=== PATIENT | male | born 1955 | race African-American/Black ===

== ENCOUNTER 2022-03-09 08:02 | Observation (INO) | payer MEDICARE, SELFPAY ==
[2022-03-09] VITALS (16 sets, daily range): BP systolic 134–187; BP diastolic 92–111; PULSE 80–107; RESP 11–20; TEMP 36.4–36.8; O2SAT 96–100; BMI 20.6
--- NOTE | ~2022-03-09 | XR_ITS ---
EXAMINATION: XR lumbar spine 2-3V DATE: 03/11/2022 09:27 INDICATION: Intractable low back pain. TECHNIQUE: 3 views of lumbar spine were obtained. COMPARISON: CT abdomen and pelvis 03/09/2022 FINDINGS: There is 4 degrees dextrocurvature of lumbar spine. There is 5 mm anterolisthesis of L4 on L5 and 5 mm retrolisthesis of L5 on S1. Vertebral body heights are normal. There is severely decrease d disc height at L5-S1 with endplate remodeling. There is mildly decreased disc height at L4-L5. Ther e is severe facet joint osteoarthritis in lower lumbar spine. IMPRESSION: 1. Severe lumbar spondylosis. Reviewed, dictated and finalized at location A.
--- NOTE | ~2022-03-09 | XR_ITS ---
EXAMINATION: XR chest 1V portable 03/09/2022 09:58 INDICATION: Hypertension. PROCEDURE: AP portable chest COMPARISON: No prior studies for comparison. FINDINGS: The lungs are clear. The cardiomediastinal silhouette is within normal limits. There are no pleural effusions. There is no pneumothorax suspected. IMPRESSION: 1: NO ACUTE CARDIOPULMONARY DISEASE. Reviewed, dictated and finalized at location A.
--- NOTE | ~2022-03-09 | CT_ITS ---
EXAMINATION: CT abdomen pelvis w con DATE: 03/09/2022 09:31 INDICATION: Generalized abdominal pain TECHNIQUE: Computed tomography (CT) of the abdomen and pelvis was performed with 100 cc Omnipaque 350 intravenous contrast. The dose-length product was 263.83 mGy-cm. Automated exposure control and iter ative reconstruction technique were employed. COMPARISON: None. FINDINGS: There is dependent atelectasis. There is multifocal consolidation in the left lower lobe, s uspicious for pneumonia. Heart size normal. No significant pleural or pericardial effusion. No signif icant vascular abnormality. No lymphadenopathy. There are small subcentimeter low-density lesions in the left kidney, most likely benign. Nonobstructive bowel pattern. Gallbladder is present. No free ai r or free fluid. There is diffuse bladder wall thickening. There is severe spondylosis at L5-S1. IMPRESSION: 1. Multifocal consolidation of the left lower lobe, suspicious for pneumonia. 2: Diffuse bladder wall thickening. Consider cystitis in the appropriate clinical setting. Reviewed, dictated and finalized at location A. IMPRESSION: 1. Multifocal consolidation of the left lower lobe, suspicious for pneumonia. 2: Diffuse bladder wall thickening. Consider cystitis in the appropriate clini drashana setting.
--- NOTE | 2022-03-09 08:17 | ED.GENADULT ---
HPI - General Adult General Chief complaint: Abdominal Pain Stated complaint: abd pain Time Seen by Provider: 03/09/22 08:08 Source: RN notes reviewed History of Present Illness HPI narrative: Patient presents emergency department for abdominal and back pain. Patient states he is currently on a cross-country trip from [place] to [facility] where he is from [facility] 2 days ago he developed pain throughout the abdomen that radiated into his back states the pain is aching in nature and pain is worse with sitting upright and moving of his back he denies any fevers or chills he denies any nausea vomiting or diarrhea. He states he stopped at a emergency department in [place] and states that he did not have a full work-up at that time states he not taking thing for the pain denies any other symptoms denies any numbness or tingling of the lower extremities denies any bowel or bladder incontinence Related Data Allergies Allergy/AdvReac Type Severity Reaction Status Date / Time No Known Allergies Allergy Verified 03/09/22 09:07 Review of Systems Review of Systems: Gen.: Denies fevers or chills ENT: Denies congestion Respiratory: Denies shortness of breath or cough CV: Denies chest pain or palpitations GI: See HPI denies incontinence Musculoskeletal: Reports lower back pain Neuro: Denies numbness, tingling, weakness or focal weakness Skin: Denies rash Except as documented, all other systems reviewed and negative [facility] Past Medical History Medical History (Updated 03/09/22 @ 10:46 by Bar Brown DO) Hypertension Social History Social History (Updated 03/09/22 @ 08:19 by Bar Brown DO) Smoking status: Never smoker Exam Narrative: APPEARANCE: No acute distress, nontoxic, resting in bed HEENT: Normocephalic, atraumatic, OMM RESPIRATORY: No respiratory distress, clear to auscultation bilaterally with no rhonchi wheezing or rales CARDIOVASCULAR: RRR s murmur ABDOMINAL: Soft diffusely tender to palpation no rebound or guarding MUSCULOSKELETAl: Moves all extremities. No clubbing, cyanosis or edema. Back: No midline thoracic lumbar tenderness palpation tender palpation of bilateral paravertebral muscles L3-5 pain increased with forward flexion NEURO: Awake and alert. Following commands, speech normal, no focal deficits SKIN:: Warm, dry. Normal Color PSYCHIATRIC: Normal affect/mood Course Course Emergency Course: Patient reevaluated abdomen is soft still diffusely tender to palpation the patient currently had just stopped and will driving off the freeway will admit for pain control at this time and antibiotics Discussed with Dr. Burrows presentation work-up agrees with admission Discussed with patient and family results of workup and diagnosis. Discussed need for admission. Patient and family understand and agree to current treatment plan Vital Signs Vital signs: Vital Signs Temperature 98.3 F 03/09/22 08:09 Pulse Rate 92 03/09/22 08:09 Respiratory Rate 18 03/09/22 08:09 Pulse Oximetry 97 03/09/22 08:09 Oxygen Delivery Room Air 03/09/22 08:09 Temperature 98.3 F 03/09/22 08:09 Pulse Rate 89 03/09/22 09:35 Respiratory Rate 15 03/09/22 09:35 Blood Pressure 145/111 H 03/09/22 08:46 Pulse Oximetry 99 03/09/22 09:35 Oxygen Delivery Room Air 03/09/22 08:09 Medical Decision Making Vital Signs Vital Signs: Vital Signs Temperature 98.3 F 03/09/22 08:09 Pulse Rate 92 03/09/22 08:09 Respiratory Rate 18 03/09/22 08:09 Pulse Oximetry 97 03/09/22 08:09 Oxygen Delivery Room Air 03/09/22 08:09 Temperature 98.3 F 03/09/22 08:09 Pulse Rate 89 03/09/22 09:35 Respiratory Rate 15 03/09/22 09:35 Blood Pressure 145/111 H 03/09/22 08:46 Pulse Oximetry 99 03/09/22 09:35 Oxygen Delivery Room Air 03/09/22 08:09 Lab Data Result diagrams: 03/09/22 08:40 03/09/22 08:40 Labs: Lab Results 03/09/22 03/09/22
[2022-03-09 08:48] LABS: Basophils Absolute Auto 0.1 K/mm3 (0.0-0.1); Basophils Percent Auto 0.8 % (0.2-1.2); Eosinophils Absolute Auto 0.1 K/mm3 (0-0.3); Eosinophils Percent Auto 2.3 % (0-4.4); Hemoglobin 14.9 g/dL (14.0-18.0); Immature Granulocyte Absolute 0.03 K/mm3 (0.00-0.031); Immature Granulocyte Percent A 0.5 % (0-0.5); Lymphocytes Absolute Auto 1.46 K/mm3 (0.9-3.2); Mean Corpuscular HGB Conc 33.1 g/dl (32-36); Mean Corpuscular Hemoglobin 28.8 pg (26-34); Mean Platelet Volume 10.4 fl (7.4-10.4); Monocytes Absolute Auto 0.8 K/mm3 (0.1-0.6); Neutrophils Absolute Auto 3.6 K/mm3 (1.3-6.7); Neutrophils Percent Auto 59.4 % (45.5-73.1); Platelet Count Result 215 k/mm3 (150-375); Red Blood Count 5.17 M/mm3 (4.6-6.20); Red Cell Distribution Width 14.8 % (11.5-14.5); White Blood Count 6.1 K/mm3 (4.5-10.0)
[2022-03-09 08:52] LABS: Add Urine Microscopic? YES; Appearance Urine Cloudy (Clear); Bacteria Urine Trace /hpf; Bilirubin Urine Negative (Negative); Blood Urine 2+ (Negative); Color Urine Yellow (Yellow); Glucose Urine UA Negative (Negative); Ketones Urine Negative (Negative); Leukocyte Esterase Ur 3+ LEU/UL (Negative); Nitrate Urine Negative (Negative); Protein Urine 1+ mg/dL (Negative); Specific Grav Ur 1.009 (1.001-1.035); Squamous Epithelial Cell Urine Rare /hpf (Few); Urobilinogen Urine Negative mg/dL (<2.0); WBC Urine 51-75 /hpf
[2022-03-09 08:59] LABS: Alanine Aminotransferase 38 U/L (6-50); Albumin Level 4.8 g/dL (3.5-5.1); Alkaline Phosphatase 108 U/L (38-126); Anion Gap 11 mmol/L (8-16); Aspartate Amino Transferase 58 U/L (17-59); Bilirubin,Total 0.9 mg/dL (0.2-1.3); Blood Urea Nitrogen 12 mg/dL (9-20); Calcium 9.5 mg/dL (8.4-10.2); Carbon Dioxide 25 mmol/L (22-30); Chloride 99 mmol/L (98-107); Estimated Glomerular Filt Rate > 60; Glucose 105 mg/dL (65-110); Lipase 417 U/L (23-300); Potassium 4.1 mmol/L (3.4-5.0); Sodium 135 mmol/L (137-145)
[2022-03-09] MEDS: SODIUM CHLORIDE 0.9% IV 1,000 ML 999 ML IV CONT (09:06)
[2022-03-09] MEDS: KETOROLAC 30 MG/ML VIAL (*BKC) IV PUSH (09:06)
[2022-03-09] MEDS: Please add drug allergy info to patient profile. 1 EACH XX (09:07)
[2022-03-09] MEDS: MORPHINE SULFATE (*CRX) 2 MG/ML INJ IV PUSH (10:38)
--- NOTE | 2022-03-09 11:10 | ADMGEN ---
This patient, Jg Vega, was admitted to [facility] Room 314-01. Patient/family oriented to hospital policies and general routines including ID bracelet, bed and alarms, visiting hours, pain management, procedures, bathroom and other care routines, personal items, smoking policy, room service/diet, and visiting hours. Information on how to activate the Rapid Response Team has been discussed. Patient/Family are encouraged to report perceived risks to care and to ask questions if they do not understand what they are told or what they should do.
--- NOTE | 2022-03-09 14:00 | PM.IMHP ---
H&P: HPI History of Present Illness Date/Time: 03/09/22 14:00 Chief Complaint: Back and abdominal pain. Narrative: This is a 66-year-old male with hypertension who presented to the emergency department for evaluation of back and abdominal pain. He has been living in [place] for the last 1 year and is moving back home to [place], [place]. He left [place] several days ago and approximately [address] he developed sudden onset of diffuse lower back pain radiating around into the suprapubic region. He has a difficult time describing the pain but reports that it was so severe that he had to [place] at a truck stop as he was feeling very lightheaded and dizzy in addition to the pain. EMS was summoned and he was brought to a small [facility] where he reportedly had labs done and he was discharged without intervention. He rested a few hours before he got back on the road. Unfortunately he continues to have this pain, occasionally like muscle spasms, and today he noticed a sharp and shooting pain in the left lower ribcage, worse with movement and deep inspiration. Vital signs were stable on arrival to the emergency department. Urine was cloudy with 3+ leukocyte esterase, 51 to 75 WBCs, and trace bacteria. CT of the abdomen and pelvis showed diffuse bladder wall thickening and multifocal consolidation of the left lower lobe suspicious for pneumonia. With further questioning he does endorse mild dysuria in addition to the discomfort as detailed above. He has noticed that his urine is a lot darker than usual which he attributes to the fact that he has not really had much to eat or drink while on the road, having occasional water or mouth to here or there. He denies fever, chills or night sweats, headache, sinus congestion, sore throat, cough, nausea, vomiting, and diarrhea. Review of Systems Review of Systems: Twelve systems were reviewed. No fever, chills, or sweats. He typically gets up 3 times a night to use the restroom. No lower extremity weakness, bowel or bladder incontinence, urinary retention, saddle anesthesia. No sick contacts was knowledge. Except as documented, all other systems were reviewed and are negative. [facility] Past Medical History Medical History (Updated 03/09/22 @ 18:07 by Amanda Mccollum PA-C) Hypertension Surgical History Surgical History (Updated 03/09/22 @ 18:03 by Amanda Mccollum PA-C) History of lumbar surgery (2009) Family History Family History (Updated 03/09/22 @ 18:03 by Amanda Mccollum PA-C) Other Alzheimer's dementia Hypertension Social History Social History (Updated 03/09/22 @ 23:46 by Amanda Mccollum PA-C) Social History: Surrogate medical decision maker: Don Briseno, significant other. Code status: Full code. Smoking packs per day: 0.25 Smoking cigarettes per day: 5.0 Smoking status: Current every day smoker Tobacco type: cigarettes Additional smoking assessment comments: Smokes 1 pack of cigarettes a week. Alcohol intake: current Drinks per week: 1 Substance use: current Substance use type: marijuana Other substance usage details: Occasionally in moderation. Additional living arrangements comments: Moving back to [place], [place] after living in [place] for the last 1 year. Additional occupation/education comments: Retired, previously worked for an [employer]. Spiritual care concerns: No Meds Home Medications and Allergies Home Medications Medication Instructions Recorded Confirmed Type amlodipine 10 mg tablet 10 mg PO DAILY 03/09/22 03/09/22 History gabapentin 300 mg capsule 300 mg PO BID 03/09/22 03/09/22 History losartan 100 mg tablet 100 mg PO HS 03/09/22 03/09/22 History meclizine 25 mg tablet 25 mg PO PRN PRN Dizziness 03/09/22 03/09/22 History Allergies Allergy/AdvReac Type Severity Reaction Status Date / Time No Known Allergies Allergy Verified 03/09/22 13:54 Vital Signs Vital Signs - 24 hr
[2022-03-09] MEDS: GABAPENTIN 300 MG CAPSULE PO (17:17)
[2022-03-09] MEDS: ACETAMINOPHEN 325 MG TABLET 650 MG PO (18:26)
[2022-03-09] MEDS: CYCLOBENZAPRINE HCL 10 MG TABLET PO (18:26)
[2022-03-09] MEDS: LOSARTAN POTASSIUM 100 MG TABLET PO (20:02)
--- NOTE | 2022-03-10 02:13 | PC.NURSE ---
This RN has personally reviewed RN-License Pending Gaudencio Piña's charting and will be reviewing until the end of this shift.
[2022-03-10] MEDS: CYCLOBENZAPRINE HCL 10 MG TABLET PO ×2 (03:30→15:27)
[2022-03-10] MEDS: ACETAMINOPHEN 325 MG TABLET 650 MG PO (03:30)
[2022-03-10 06:00] VITALS: BP 154/91; PULSE 68; RESP 14; TEMP 36.2; O2SAT 98
[2022-03-10 07:24] LABS: Basophils Percent Auto 0.9 % (0.2-1.2); Eosinophils Absolute Auto 0.3 K/mm3 (0-0.3); Eosinophils Percent Auto 5.5 % (0-4.4); Hematocrit 40.9 % (42.0-52.0); Hemoglobin 13.4 g/dL (14.0-18.0); Immature Granulocyte Absolute 0.01 K/mm3 (0.00-0.031); Immature Granulocyte Percent A 0.2 % (0-0.5); Lymphocytes Percent Auto 37.4 % (18.3-44.2); Mean Corpuscular HGB Conc 32.8 g/dl (32-36); Mean Corpuscular Hemoglobin 28.8 pg (26-34); Mean Corpuscular Volume 87.8 fl (80-100); Mean Platelet Volume 10.7 fl (7.4-10.4); Monocytes Absolute Auto 0.7 K/mm3 (0.1-0.6); Neutrophils Absolute Auto 1.8 K/mm3 (1.3-6.7); Platelet Count Result 195 k/mm3 (150-375); Red Blood Count 4.66 M/mm3 (4.6-6.20); Red Cell Distribution Width 14.6 % (11.5-14.5); White Blood Count 4.6 K/mm3 (4.5-10.0)
[2022-03-10 07:49] LABS: Alanine Aminotransferase 33 U/L (6-50); Albumin Level 3.9 g/dL (3.5-5.1); Alkaline Phosphatase 80 U/L (38-126); Anion Gap 10 mmol/L (8-16); Aspartate Amino Transferase 55 U/L (17-59); Bilirubin,Total 0.6 mg/dL (0.2-1.3); Blood Urea Nitrogen 10 mg/dL (9-20); Calcium 9.1 mg/dL (8.4-10.2); Carbon Dioxide 26 mmol/L (22-30); Chloride 101 mmol/L (98-107); Estimated CRCL calculation 66 ml/min; Estimated Glomerular Filt Rate > 60; Glucose 90 mg/dL (65-110); Lipase 326 U/L (23-300); Potassium 3.5 mmol/L (3.4-5.0); Sodium 137 mmol/L (137-145)
[2022-03-10] MEDS: GABAPENTIN 300 MG CAPSULE PO ×2 (08:54→16:48)
[2022-03-10] MEDS: ENOXAPARIN 40 MG/0.4 ML SYRINGE SUB-Q (08:55)
[2022-03-10] MEDS: amLODIPine BESYLATE 5 MG TABLET 10 MG PO (08:55)
--- NOTE | 2022-03-10 10:11 | PM.IMPN ---
Progress Note: A&P Assessment and Plan (1) Community acquired pneumonia: Code(s): J18.9 - Pneumonia, unspecified organism Status: Acute Assessment and Plan: CT of the abdomen/pelvis showed multifocal consolidation of the left lower lobe concerning for pneumonia. CXR did not reveal any acute findings. He did complain of some pleuritic discomfort. No leukocytosis or fever. Continue ceftriaxone and azithromycin. Sputum culture has been ordered if sample can be provided. Mycoplasma pneumonia IgM pending. Urinary Legionella and pneumococcal antigens ordered, pending collection. Supportive care. (2) Abnormal urinalysis: Code(s): R82.90 - Unspecified abnormal findings in urine Status: Acute Assessment and Plan: UA abnormal on presentation. Continue IV ceftriaxone while awaiting urine culture. Tailor antibiotics accordingly. (3) Hypertension: Code(s): I10 - Essential (primary) hypertension Status: Acute Assessment and Plan: Blood pressures stable, mildly elevated. Last BP 154/91. Continue home amlodipine and losartan. Monitor blood pressure trends (4) Musculoskeletal back pain: Code(s): M54.9 - Dorsalgia, unspecified Status: Acute Assessment and Plan: Patient complains of low back pain ongoing about 2 days. Possibly due to prolonged sitting/driving while pt is driving from [place] to [place]. No red flag symptoms including saddle anesthesia, loss of bowel or bladder control, spinal tenderness, trauma and given duration of 2 days, there is no indication for imaging at this time. Supportive care. Cyclobenzaprine as needed for muscle spasm. Heating pad. Monitor symptoms. Subjective Date/time seen: 03/10/22 10:11 Interval history: Date of service: 03/10/2022 Jg Mckeon is a 66-year-old male with a history of hypertension is seen in follow-up for pneumonia, suspected UTI, and low back pain. He was asleep when I entered the room but as soon as he woke up E complained of back pain. He endorses 9/10 pain in his lower back that radiates to both flanks. States it is worse if he tries to rotate side to side. He denies saddle anaesthesia, numbness or tingling of his lower extremities, denies loss of bowel or bladder control. He denies urinary symptoms including dysuria, urgency, hesitancy, frequency, incomplete emptying, dribbling, or hematuria. No abdominal pain. No pelvic pain. No nausea or vomiting. He does endorse some mild shortness of breath. denies cough. Denies chest pain. No fever or chills. Review of Systems Review of Systems: All systems reviewed & are unremarkable except as noted in HPI and below Exam Narrative: General: Well-nourished, well-appearing 66-year-old male, supine in bed, comfortable, NARD Neuro: awake, alert and oriented x4, speech clear, no focal neuro deficits noted HEENMT: normocephalic, atraumatic, EOMI, sclerae anicteric, moist oral mucosa Respiratory: clear to auscultation bilaterally, nonlabored breathing Cardio: regular rate, regular rhythm with S1-S2 Abdomen: nondistended, normoactive bowel sounds, soft, nontender to palpation : no CVA tenderness Back: No spinal tenderness to palpation, passive rotation to left and right elicits pain Extremities: bilateral lower extremity strength 5/5, straight leg raise does not elicit back pain, BLE without edema, erythema, or tenderness to palpation, DP pulses 2+ bilaterally, sensation intact Skin: no rashes or lesions, warm and dry Psych: appropriate mood and affect, judgment and insight intact Objective Data Vital Signs Vital Signs: Vital Signs - 24 hr 03/09/22 11:05 03/09/22 14:00 03/09/22 21:11 Temperature 97.6 F 97.9 F 98.0 F Pulse Rate 94 80 92 Respiratory Rate 20 20 14 Blood Pressure 144/99 H 142/96 H 187/92 H Pulse Oximetry 100 98 97 03/10/22 06:00 Temperature 97.1 F L Pulse Rate 68 Respiratory Rate 14 Blood Pressure 154/91 H
[2022-03-10 14:00] VITALS: BP 129/95; PULSE 66; RESP 20; TEMP 36.4; O2SAT 98
[2022-03-10 20:00] VITALS: PULSE 66; RESP 20; O2SAT 98
[2022-03-10] MEDS: LOSARTAN POTASSIUM 100 MG TABLET PO (20:07)
[2022-03-10 22:00] VITALS: BP 135/93; PULSE 67; RESP 20; TEMP 36.3; O2SAT 100
[2022-03-11] MEDS: CYCLOBENZAPRINE HCL 10 MG TABLET PO (05:13)
[2022-03-11 05:36] VITALS: BP 126/94; PULSE 64; RESP 20; TEMP 36.5; O2SAT 98
[2022-03-11 06:14] LABS: Hematocrit 39.6 % (42.0-52.0); Hemoglobin 12.9 g/dL (14.0-18.0); Mean Corpuscular HGB Conc 32.6 g/dl (32-36); Mean Corpuscular Hemoglobin 28.7 pg (26-34); Mean Corpuscular Volume 88.2 fl (80-100); Mean Platelet Volume 10.8 fl (7.4-10.4); Platelet Count Result 203 k/mm3 (150-375); Red Blood Count 4.49 M/mm3 (4.6-6.20); Red Cell Distribution Width 14.6 % (11.5-14.5); White Blood Count 3.8 K/mm3 (4.5-10.0)
[2022-03-11 06:22] LABS: Anion Gap 5 mmol/L (8-16); Blood Urea Nitrogen 12 mg/dL (9-20); Calcium 8.8 mg/dL (8.4-10.2); Carbon Dioxide 28 mmol/L (22-30); Chloride 102 mmol/L (98-107); Estimated CRCL calculation 68 ml/min; Estimated Glomerular Filt Rate > 60; Glucose 112 mg/dL (65-110); Potassium 3.6 mmol/L (3.4-5.0); Sodium 135 mmol/L (137-145)
[2022-03-11] MEDS: ENOXAPARIN 40 MG/0.4 ML SYRINGE SUB-Q (08:03)
[2022-03-11] MEDS: GABAPENTIN 300 MG CAPSULE PO ×2 (08:03→17:17)
[2022-03-11] MEDS: amLODIPine BESYLATE 5 MG TABLET 10 MG PO (08:03)
--- NOTE | 2022-03-11 08:38 | PM.IMPN ---
Progress Note: A&P Assessment and Plan (1) Community acquired pneumonia: Code(s): J18.9 - Pneumonia, unspecified organism Status: Acute Assessment and Plan: As evidenced by CT scan. LLL appears to have possible PNA. Normal CXR. Asymptomatic and appears non-toxic. Continue ceftriaxone and azithromycin. Sputum culture has been ordered if sample can be provided. Mycoplasma pneumonia IgM pending. Urinary Legionella and pneumococcal antigens ordered, pending collection. Supportive care. Monitor labs and VS. Continue IV abx for now of Rocephin and Azithromycin. (2) Abnormal urinalysis: Code(s): R82.90 - Unspecified abnormal findings in urine Status: Ruled-out Assessment and Plan: Negative culture. UTI ruled out. (3) Hypertension: Code(s): I10 - Essential (primary) hypertension Status: Acute Assessment and Plan: Blood pressures stable, mildly elevated. Continue home amlodipine and losartan. Monitor blood pressure trends (4) Musculoskeletal back pain: Code(s): M54.9 - Dorsalgia, unspecified Status: Acute Assessment and Plan: Unknown etiology. Pt. doesn't believe it is due to the long drive as he states he has done it many times before. Denies any acute trauma or injuries. Flexeril not helping pain. Continue heating pad, continue flexeril. Start Tramadol prn and 4 scheduled doses of Toradol 15 mg. No red flags, but pain is preventing discharge. Imaging ordered via plain film x-rays. Plan Pt. asks me to speak with Chief Quality Officer. When asked what he would like to talk with them about, he states he drove [address] and is low on money for gas, so he is wondering if there is anything we can do to help get him gas money. I explained this was not a possible request. Time Spent With Patient Time with patient: 15 - 25 minutes Subjective Date/time seen: 03/11/22 08:30 Pt. examined at the bedside today without any acute complaints other than his back continuing to hurt. He denies any acute trauma or injury and reports that the Flexeril he is receiving is not helping his pain at this point. He denies any urinary complaints or symptoms and he has no cough or dyspnea. He had negative urine cultures, so no further treatment is needed at this time. As he feels that the pain medication (Flexeril) is not yet helping his pain, he is requesting different treatment and to stay in the hospital another day. He denies any saddle anesthesia, and radicular symptoms to the legs and he denies any loss of bowel or bladder control. We have not had any imaging performed of his back, so will order plain film x-rays today. He otherwise has no CP, dyspnea, N/V/D, headaches, dizziness or lightheadedness. Review of Systems Review of Systems: All systems reviewed & are unremarkable except as noted in HPI and below Exam Const: General: uncomfortable (back pain) HENMT: Other: atraumatic and normocephalic head. Eyes: General: appearance normal, both eyes and all related structures Sclera: sclerae normal Neck: Neck: supple and no JVD Resp: Effort & Inspection: normal respiratory effort Auscultation: clear to auscultation bilaterally Cardio: Rate: regular rate Rhythm: regular rhythm Heart sounds: no gallops, no murmurs and no rubs GI: Inspection: non-distended GI Palp: Yes Soft to palpation and No Tenderness to palpation present (GI) Auscultation: normal bowel sounds Skin: General skin exam: normal color and no rashes or lesions noted Lesions: no lesions noted Rashes: no rashes noted Wounds: no wounds Neuro: General: gait normal Speech: normal speech Motor exam (neuro): 5/5 motor strength present throughout and Normal motor muscle tone present throughout Sensory Exam: normal sensation Extrem: General: normal to inspection, no edema and no pedal edema Other: Freely and equally MAEW and without deficit. Psych: Men
[2022-03-11] MEDS: KETOROLAC 15 MG/ML VIAL (*BKC) IV PUSH ×3 (09:58→20:14)
[2022-03-11 14:00] VITALS: BP 128/90; PULSE 65; RESP 14; TEMP 36.4; O2SAT 99
[2022-03-11 19:50] VITALS: PULSE 65; RESP 14; O2SAT 99
[2022-03-11] MEDS: LOSARTAN POTASSIUM 100 MG TABLET PO (20:16)
[2022-03-11 22:00] VITALS: BP 117/87; PULSE 66; RESP 12; TEMP 36.8; O2SAT 100
[2022-03-12] MEDS: KETOROLAC 15 MG/ML VIAL (*BKC) IV PUSH (03:39)
[2022-03-12 06:00] VITALS: BP 131/89; PULSE 65; RESP 14; TEMP 36.9; O2SAT 100
[2022-03-12 08:00] VITALS: O2SAT 97
[2022-03-12] MEDS: amLODIPine BESYLATE 5 MG TABLET 10 MG PO (08:51)
[2022-03-12] MEDS: traMADol/ACETAMINOPHEN (*CRX) (ULTRACET) 37.5/325 MG TABLET 1 TAB PO (08:51)
[2022-03-12] MEDS: ENOXAPARIN 40 MG/0.4 ML SYRINGE SUB-Q (08:51)
[2022-03-12] MEDS: GABAPENTIN 300 MG CAPSULE PO (08:51)
--- NOTE | 2022-03-12 12:18 | PM.DS ---
DS: Admitting Diagnosis Discharge Date 03/12/22 12:43 Admitting Diagnosis Pneumonia, unspecified organism Unspecified abnormal findings in urine Essential hypertension, chronic? Dorsalgia, unspecified DS: Discharge Diagnosis Discharge Diagnosis (1) Community acquired pneumonia: Code(s): J18.9 - Pneumonia, unspecified organism Status: Acute Assessment and Plan: As evidenced by CT scan, opacities in LLL suggest pneumonia. Treated with IV ceftriaxone 1 gram Q24 hours and azithromycin 500 mg IV Q24 hours 03/09-03/12/22. Sputum culture ordered but could not be obtained.? Mycoplasma pneumonia IgM, urinary Legionella and pneumococcal antigens were pending at discharge. He did not require supplemental oxygen. SpO2 was stable at rest and with ambulation at discharge. He reported improvement in back pain and breathing. He was transitioned to cefdinir 300 mg BID for 4 days. (2) Acute UTI: Code(s): N39.0 - Urinary tract infection, site not specified Status: Acute Assessment and Plan: C/o dysuria on admission. UA showed 3+ leukocytes, 51-75 WBC, and trace bacteria. CT showed diffuse bladder wall thickening suggestive to acute cystitis. He was treated with IV Rocephin 1 gram Q14 hours x 4 days. Urine culture was negative for bacterial growth. Cefdinir prescribed for pneumonia will cover urinary microbes. (3) Musculoskeletal back pain: Code(s): M54.9 - Dorsalgia, unspecified Status: Acute Assessment and Plan: Presume secondary to pneumonia and pleuritis. He denied concern it was due to the long drive, as he has done it many times before. No acute trauma or injuries. He was treated with 4 scheduled doses of Toradol 15 mg IV, prn Tramadol/acetaminophen Q4 hours, PRN flexeril and heating pad. His lower back pain improved with pain management and antibiotic therapy. Lumbar x-ray showed severe lumbar spondylosis. (4) Hypertension: Qualifiers: Hypertension type: primary hypertension Qualified Code(s): I10 - Essential (primary) hypertension Code(s): I10 - Essential (primary) hypertension Status: Acute Assessment and Plan: Chronic, blood pressures mildly elevated on admission and improved upon resuming home dose amlodipine and losartan. DS: Summary Hospital Course Reason for hospitalization: back and lower abdominal pain Hospital Course: Jg Vega is a 66-year-old male with hypertension who presented to the emergency department for evaluation of lower back and abdominal pain. He has been living in [place] for the last 1 year and driving back home to [place], [place]. He left [place] several days ago and approximately [address] he developed sudden onset of diffuse lower back pain radiating around into the suprapubic region. 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 EMS was summoned and he was brought to a [facility] where he reportedly had labs done and he was discharged without intervention. He rested a few hours before he got back on the road. Unfortunately he continued to have this pain, occasionally like muscle spasms. On the day of admission, he noticed a sharp and shooting pain in the left lower ribcage, worse with movement and deep inspiration. Vital signs were stable on arrival to the emergency department. Urine was cloudy with 3+ leukocyte esterase, 51 to 75 WBCs, and trace bacteria. CT of the abdomen and pelvis showed diffuse bladder wall thickening and multifocal consolidation of the left lower lobe suspicious for pneumonia. With further questioning he endorsed mild dysuria and discomfort as detailed above. He noticed that his urine is a lot darker than usual which he attributes to the fact that he has not really had much to eat or drink while on the road, having occasiona
[2022-03-13 01:23] LABS: Pneumococcal Antigen Urine Not Detected (Not Detected)
[2022-03-13 14:42] LABS: Mycoplasma IgM Antibody Titer 14 U/mL (<770)
[2022-03-14 02:37] LABS: Legionella pneumophila Ag Ur Not Detected (Not Detected)
== END 2022-03-12 12:55 | disposition home or self-care (01) ==
LOC: ANHED 10:46 → ANH3MEDSUR 10:48
PROVIDERS: Physician Assistant; Admitting Provider Chiropractor; Emergency Provider Emergency Medicine; Visit Provider Nurse Practitioner Adult Health
DX: J18.9 Pneumonia, unspecified organism (principal); N39.0 Urinary tract infection, site not specified; M47.816 Spondylosis without myelopathy or radiculopathy, lumbar region; I10 Essential (primary) hypertension; R42 Dizziness and giddiness; R10.9 Unspecified abdominal pain; R74.8 Abnormal levels of other serum enzymes; F17.210 Nicotine dependence, cigarettes, uncomplicated; F12.90 Cannabis use, unspecified, uncomplicated; Z79.899 Other long term (current) drug therapy
CPT/HCPCS: 36415; 71045; 72100; 74177; 80048; 80053; 81001; 83690; 83735; 85025; 85027; 86738; 87086; 87449; 87899; 96365; 96366; 96368; 96372; 96375; 96376; 99285; A9270; G0378; J0456; J0696; J1650; J1885; J2270; J7030; Q9967